=== PATIENT | female | born 1990 | race Caucasian/White ===

== ENCOUNTER 2017-06-29 15:32 | Emergency (ER) | payer MEDICAID, OTHER ==
[2017-06-29 16:11] VITALS: BP 98/66
--- NOTE | 2017-06-29 16:28 | C.PDOC ---
History Of Present Illness 26 year old female presents to the ER stating she is having a late menses and "huge" vaginal bleeding today. Denies other associated symptoms. LATE MENSES, "HUGE" VB TODAY. NO OTHER ASSOC SX EXMA NEG Time Seen by Provider: 06/29/17 16:17 Chief Complaint (Nursing): Female Genitourinary History Per: Patient History/Exam Limitations: no limitations Onset/Duration Of Symptoms: Hrs Current Symptoms Are (Timing): Still Present Quality Of Discomfort: Unable To Describe Associated Symptoms: denies: Back Pain, Urinary Symptoms Alleviating Factors: None Recent travel outside of the [place]: No Abnormal Vaginal Bleeding: Yes Past Medical History Reviewed: Historical Data, Nursing Documentation, Vital Signs Vital Signs: Last Vital Signs Temp 98 F 06/29/17 16:09 Pulse 80 06/29/17 16:09 Resp 20 06/29/17 16:09 BP 98/66 L 06/29/17 16:09 Pulse Ox 100 06/29/17 16:55 - Medical History PMH: No Chronic Diseases - Yorn Procedures ASPIRATION SKIN & SUBQ (10/22/13) Family History: States: Unknown Family Hx - Social History Hx Alcohol Use: No Hx Substance Use: No - Immunization History Hx Tetanus Toxoid Vaccination: No Hx Influenza Vaccination: No Hx Pneumococcal Vaccination: No Review Of Systems Gastrointestinal: Negative for: Abdominal Pain Genitourinary: Positive for: Vaginal Bleeding. Negative for: Dysuria, Hematuria , Vaginal Discharge, Pelvic Pain Physical Exam - Physical Exam Appears: Non-toxic, No Acute Distress Skin: Normal Color, Warm, Dry Head: Atraumatic, Normacephalic Eye(s): bilateral: Normal Inspection Oral Mucosa: Moist Chest: Symmetrical, No Tenderness Cardiovascular: Rhythm Regular Respiratory: Normal Breath Sounds, No Rales, No Rhonchi, No Wheezing Gastrointestinal/Abdominal: Soft, No Tenderness Neurological/Psych: Oriented x3, Normal Speech ED Course And Treatment - Laboratory Results Urine POC: Negative O2 Sat by Pulse Oximetry: 100 (Room air) Pulse Ox Interpretation: Normal Medical Decision Making Medical Decision Making: Plan: * Urinalysis Disposition Counseled Patient/Family Regarding: Diagnosis, Need For Followup - Disposition Referrals: YOUR,OBGYN [Other] Disposition: HOME/ ROUTINE Disposition Time: 16:55 Condition: GOOD Instructions: Dysfunctional Uterine Bleeding (ED) Forms: [facility] ([place]) - Clinical Impression Clinical Impression: Late menstruation - Scribe Statement The provider has reviewed the documentation as recorded by the Scribe Pradeep Gu All medical record entries made by the Scribe were at my direction and personally dictated by me. I have reviewed the chart and agree that the record accurately reflects my personal performance of the history, physical exam, medical decision making, and the department course for this patient. I have also personally directed, reviewed, and agree with the discharge instructions and disposition.
[2017-06-29 16:44] LABS: SQUAMOUS EPITHIAL 3 /hpf (0-5); URINE BILIRUBIN NEGATIVE (NEGATIVE); URINE BLOOD NEGATIVE (NEGATIVE); URINE CLARITY Clear (Clear); URINE COLOR Yellow (YELLOW); URINE GLUCOSE (UA) NORMAL (Normal); URINE LEUKOCYTE ESTERASE NEG Leu/uL (Negative); URINE NITRATE NEGATIVE (NEGATIVE); URINE PROTEIN NEGATIVE (NEGATIVE); URINE UROBILINOGEN NORMAL mg/dL (0.2-1.0)
[2017-06-29 17:14] VITALS: PULSE 77; RESP 14; TEMP 98.1; O2SAT 98
== END 2017-06-29 17:15 | disposition home or self-care (01) ==
LOC: C.ER 15:32
DX: N92.6 Irregular menstruation, unspecified (principal)